=== PATIENT | female | born 1970 | race Caucasian/White ===

== ENCOUNTER → 2018-10-01 | Outpatient (CLI) | payer OTHER | LOC: MC.RAD 07:00 | DX: Z12.31 Encounter for screening mammogram for malignant neoplasm of breast (principal) ==

== ENCOUNTER → 2020-06-23 | Outpatient (CLI) | payer OTHER | LOC: MC.RAD 08:45 | DX: Z12.31 Encounter for screening mammogram for malignant neoplasm of breast (principal) ==

== ENCOUNTER → 2023-11-01 | Outpatient (CLI) | payer BC | LOC: MC.RAD 08:36 | DX: Z12.31 Encounter for screening mammogram for malignant neoplasm of breast (principal) ==